=== PATIENT | female | born 1940 | race Caucasian/White ===

== ENCOUNTER 2019-12-15 10:03 | Outpatient (CLI) | payer MEDICARE, SELFPAY ==
--- NOTE | ~2019-12-15 | MM_ITS ---
EXAMINATION: MM screening [facility] BI w tee HISTORY: Screening mammogram TECHNIQUE: Craniocaudal and mediolateral oblique 3-D tomosynthesis images were obtained and synthetic 2-D images were generated. CAD analysis was submitted and interpreted. COMPARISON: Comparison to multiple prior studies sequentially, with oldest reviewed study dated 02/25. BREAST PARENCHYMAL COMPOSITION: There are scattered areas of fibroglandular density. FINDINGS: There is no evidence of suspicious mass, calcification, or architectural distortion to sugg est malignancy in either breast. There has been no suspicious interval change. IMPRESSION: 1. No mammographic evidence of malignancy. 2. Recommend routine screening mammography in one year. BI-RADS Category 1: Negative Reviewed, dictated and finalized at location A.
== END 2019-12-15 10:04 | disposition home or self-care (01) ==
LOC: ANHIMG 10:07
PROVIDERS: PCP Family Medicine; Visit Provider Family Medicine
DX: Z12.31 Encounter for screening mammogram for malignant neoplasm of breast (principal)
CPT/HCPCS: 77063; 77067

== ENCOUNTER 2020-12-16 10:36 | Outpatient (CLI) | payer MEDICARE, SELFPAY ==
--- NOTE | ~2020-12-16 | MM_ITS ---
EXAMINATION: MM screening [facility] BI w tee HISTORY: Screening TECHNIQUE: Craniocaudal and mediolateral oblique 3-D tomosynthesis images were obtained and synthetic 2-D images were generated. CAD analysis was submitted and interpreted. COMPARISON: Comparison to multiple prior studies sequentially, with oldest reviewed study dated 02/27. BREAST PARENCHYMAL COMPOSITION: There are scattered areas of fibroglandular density. FINDINGS: There is no evidence of suspicious mass, calcification, or architectural distortion to sugg est malignancy in either breast. There has been no suspicious interval change. IMPRESSION: 1. No mammographic evidence of malignancy. 2. Recommend routine screening mammography in one year. BI-RADS Category 1: Negative Reviewed, dictated and finalized at location A.
== END 2020-12-16 10:37 | disposition home or self-care (01) ==
LOC: ANHIMG 10:39
PROVIDERS: PCP Family Medicine; Visit Provider Family Medicine
DX: Z12.31 Encounter for screening mammogram for malignant neoplasm of breast (principal)
CPT/HCPCS: 77063; 77067

== ENCOUNTER 2021-12-27 09:07 | Outpatient (CLI) | payer MEDICARE, SELFPAY ==
--- NOTE | ~2021-12-27 | MM_ITS ---
EXAMINATION: MM screening [facility] BI w tee HISTORY: Screening TECHNIQUE: Craniocaudal and mediolateral oblique 3-D tomosynthesis images were obtained and synthetic 2-D images were generated. CAD analysis was submitted and interpreted. COMPARISON: Comparison to multiple prior studies sequentially, with oldest reviewed study dated 12/14. BREAST PARENCHYMAL COMPOSITION: The breasts are heterogenously dense, which may obscure small masses FINDINGS: There is no evidence of suspicious mass, calcification, or architectural distortion to sugg est malignancy in either breast. There has been no suspicious interval change. IMPRESSION: 1. No mammographic evidence of malignancy. 2. Recommend routine screening mammography in one year. BI-RADS Category 1: Negative Reviewed, dictated and finalized at location A.
== END 2021-12-27 09:08 | disposition home or self-care (01) ==
PROVIDERS: PCP Family Medicine; Visit Provider Family Medicine
DX: Z12.31 Encounter for screening mammogram for malignant neoplasm of breast (principal)
CPT/HCPCS: 77063; 77067

== ENCOUNTER 2022-03-13 17:19 | Outpatient (CLI) | payer MEDICARE, SELFPAY ==
--- NOTE | ~2022-03-13 | CT_ITS ---
EXAMINATION:CT diagnostic chest wo con DATE: 03/13/2022 17:53 INDICATION: Dyspnea. TECHNIQUE: Computed tomography (CT) of the chest was performed without intravenous contrast. Automate d exposure control and iterative reconstruction technique were employed. The dose-length product (DLP ) was 118.78 mGy-cm. COMPARISON: None. FINDINGS: The lungs demonstrate mild atelectasis. There is a 2.4 x 0.4 x 0.6 cm nodule in left upper lobe. No pleural effusion. The heart size is normal. There are coronary artery calcifications. No per icardial effusion. There are changes of cholecystectomy. There are no pathologically enlarged lymph n odes. There are chronic fractures involving the T11-L1 vertebral bodies. There is moderate thoracic s pondylosis. IMPRESSION: 1. Nodule in left lung upper lobe, most likely scarring given the morphology. Neoplasm cannot be excl uded. Noncontrast chest CT is recommended in 3 months. Reviewed, dictated and finalized at location A. IMPRESSION: 1. Nodule in left lung upper lobe, most likely scarring given the morphology. N eoplasm cannot be excluded. Noncontrast chest CT is recommended in 3 months.
== END 2022-03-13 17:20 | disposition home or self-care (01) ==
PROVIDERS: PCP Family Medicine; Visit Provider Family Medicine
DX: R06.00 Dyspnea, unspecified (principal); Z85.72 Personal history of non-Hodgkin lymphomas; Z92.3 Personal history of irradiation; R91.8 Other nonspecific abnormal finding of lung field
CPT/HCPCS: 71250

== ENCOUNTER 2022-03-31 10:08 | Outpatient (CLI) | payer MEDICARE, SELFPAY ==
--- NOTE | 2022-03-31 14:55 | WPDPFTINT ---
PFT Procedure Performed PFT Procedure Performed Plethysmography (Lung Vol) Diffusing Cap (DLCO) Flow Vol Loop Spirometry w/o Bronchodil PFT Interpretation This is a pulmonary function test with spirometry, plethysmography and diffusing capacity. The test was performed and results interpreted in accordance with the 2019 and 2005 ATS/ERS Task Force guidelines respectively using the Global Lung Function Initiative-2012 reference equations. Patient demonstrated good effort and cooperation. Reproducibility criteria were met. The quality of the spirometry maneuver was Grade A. Findings: Spirometry: There is decreased maximal expiratory airflow at low lung volumes with a concave expiratory flow tracing. The contour the inspiratory flow tracing is normal. The FVC is 1.78 L, 76% predicted. The FEV1 is 1.18 L, 66% predicted. The FEV1: FVC ratio 67%. Plethysmography: The total lung capacity is 5.07 L, 107% predicted. The functional residual capacity is 3.66 L, 135% predicted. The residual volume is 3.29 L, 144% predicted. Diffusion capacity: The diffusing capacity unadjusted for hemoglobin and carboxyhemoglobin is 12.2, 66% predicted. The diffusing capacity adjusted for alveolar volume is 4.61, 109% predicted. Impression: There is a moderate obstructive abnormality. The increase in residual volume is consistent with air trapping from an obstructive abnormality. The diffusing capacity is normal. There are no prior studies for comparison
== END 2022-03-31 10:09 | disposition home or self-care (01) ==
LOC: ANHPFT 10:09
PROVIDERS: PCP Family Medicine; Visit Provider Family Medicine
DX: R06.00 Dyspnea, unspecified (principal); Z92.3 Personal history of irradiation; Z85.72 Personal history of non-Hodgkin lymphomas; R94.2 Abnormal results of pulmonary function studies
CPT/HCPCS: 94375; 94726; 94729

== ENCOUNTER 2022-06-15 10:32 | Outpatient (CLI) | payer MEDICARE, SELFPAY ==
--- NOTE | ~2022-06-15 | CT_ITS ---
EXAMINATION: CT diagnostic chest wo con DATE: 06/15/2022 11:15 INDICATION: follow up lung nodule TECHNIQUE: Computed tomography (CT) of the chest was performed without intravenous contrast. Addition al 3D reconstructions utilizing coronal maximum intensity projection (MIP) were performed. Automated exposure control and iterative reconstruction technique were employed. The dose-length product was 53 .32 mGy-cm. COMPARISON: 03/13/2022 FINDINGS: No interval change in size or configuration of 2.4 long, 5 mm diameter nodule in the left upper lobe with configuration suggesting a bronchocele. Mild diffuse bronchial wall thickening. Small focus of a telectasis/scarring at the anterior lingula. No other pulmonary nodules, pulmonary edema, pneumonia o r pleural effusion. Heart size is normal. Atherosclerotic coronary artery calcifications. No pericard ial effusion. Thoracic aorta is normal in caliber. No significant interval change in multiple still n ormal-sized mediastinal and bilateral axillary lymph nodes. No pathologically enlarged thoracic lymph adenopathy. Cholecystectomy clips the gallbladder fossa. Stable appearance of chronic compression fra ctures at T11-L1. Moderate thoracic spondylosis. IMPRESSION: 1. No interval change in a 2.4 x 5 x 5 mm nodules in the left upper lobe with configuration suggestin g a bronchocele. Recommend 9 month follow-up low-dose noncontrast chest CT. Reviewed, dictated and finalized at location B. IMPRESSION: 1. No interval change in a 2.4 x 5 x 5 mm nodules in the left upper lobe with c onfiguration suggesting a bronchocele. Recommend 9 month follow-up low-dose non contrast chest CT.
== END 2022-06-15 10:33 | disposition home or self-care (01) ==
PROVIDERS: PCP Family Medicine; Visit Provider Family Medicine
DX: R91.8 Other nonspecific abnormal finding of lung field (principal)
CPT/HCPCS: 71250

== ENCOUNTER 2023-02-08 09:30 | Outpatient (CLI) | payer MEDICARE, SELFPAY ==
--- NOTE | ~2023-02-08 | MM_ITS ---
EXAMINATION: MM screening [facility] BI w tee HISTORY: Screening. History of lymphoma. TECHNIQUE: Craniocaudal and mediolateral oblique 3-D tomosynthesis images were obtained and synthetic 2-D images were generated. CAD analysis was submitted and interpreted. COMPARISON: Comparison to multiple prior studies sequentially, with oldest reviewed study dated 05/2018. BREAST PARENCHYMAL COMPOSITION: There are scattered areas of fibroglandular density. FINDINGS: There is an enlarged dense lymph node in the right axilla. No mammographic evidence for mal ignancy in the left breast. IMPRESSION: 1. Enlarged dense right axillary lymph node. Cannot exclude recurrent lymphoma or metastatic disease. 2. Recommend right axillary ultrasound.. BI-RADS CATEGORY 0 - INCOMPLETE STUDY, NEED ADDITIONAL IMAGING EVALUATION. Reviewed, dictated and finalized at location A.
== END 2023-02-08 09:31 | disposition home or self-care (01) ==
PROVIDERS: PCP Family Medicine; Visit Provider Family Medicine
DX: Z12.31 Encounter for screening mammogram for malignant neoplasm of breast (principal); R59.0 Localized enlarged lymph nodes
CPT/HCPCS: 77063; 77067

== ENCOUNTER 2023-02-08 13:30 | Outpatient (CLI) | payer MEDICARE, SELFPAY ==
--- NOTE | ~2023-02-08 | CT_ITS ---
EXAMINATION: CT abdomen pelvis wo con DATE: 02/08/2023 13:57 INDICATION: Adrenal adenoma. History of lymphoma. TECHNIQUE: Computed tomography (CT) of the abdomen and pelvis was performed without intravenous contr ast. Automated exposure control and iterative reconstruction technique were employed. Exam dose: 209 .10 mGy-cm total exam DLP. COMPARISON: 06/15/2022 CT chest FINDINGS: The lung bases are clear. Normal heart size. No pericardial or pleural effusion. Status post cholecystectomy. Hepatic surface nodularity is noted in particular posterolaterally. Recommend clinical correlation fo r possible cirrhosis. No hepatic or splenic space-occupying mass lesion is detected. No splenomegaly. No pancreatic mass lesion, calcification or pancreatic ductal dilatation is evident. No bile duct di latation. No adrenal mass lesion is detected on either side. No renal mass lesion is evident on this limited noncontrast examination. No urinary tract calculus or hydroureteronephrosis. There is prominent atherosclerotic calcification of the abdominal aorta and prominent calcified plaqu es at the origins of the celiac and particularly superior mesenteric arteries in addition to calcifie d plaques at the origins of both renal arteries. No abdominal aortic aneurysm. No intraperitoneal or retroperitoneal or pelvic mass lesion or adenopathy or ascites. The urinary bladder is unremarkable. Status post hysterectomy. There is nonspecific increased density of the mesenteric fat which may be due to early or prior treat ed lymphoma, mesenteric panniculitis, mesenteric inflammation, pancreatitis, mesenteric edema. No evidence of appendicitis. Diverticulosis of the colon; no CT evidence of diverticulitis. No bowel obstruction, bowel wall thickening, pneumatosis or intraperitoneal free air. There are chronic compression fracture deformities of T11, T12 and L1, present on 06/15/2022 CT thora x examination. Severe degenerative disc disease and mild retrolisthesis at L2-3. Moderately severe degenerative disc disease at L4-5 and L5-S1. IMPRESSION: Increased mesenteric density; given the history of lymphoma, this may secondary to prior treated lymphoma; early lymphoma can present with similar finding. No enlarged mesenteric lymph node s are noted. Differential diagnosis includes pancreatitis, mesenteric panniculitis, mesenteric edema or inflammation Hepatic surface nodularity is noted posterolaterally; recommend clinical correlation for possible cir rhosis Status post cholecystectomy Status post hysterectomy Reviewed, dictated and finalized at Location A. Reviewed, dictated and finalized at location L. IMPRESSION: Increased mesenteric density; given the history of lymphoma, this may secondary to prior treated lymphoma; early lymphoma can present with simila r finding. No enlarged mesenteric lymph nodes are noted. Differential diagnosis includes pancreatitis, mesenteric panniculitis, mesenteric edema or inflammati on Hepatic surface nodularity is noted posterolaterally; recommend clinical correl ation for possible cirrhosis Status post cholecystectomy Status post hysterectomy
== END 2023-02-08 13:31 | disposition home or self-care (01) ==
PROVIDERS: PCP Family Medicine; Visit Provider Internal Medicine Endocrinology, Diabetes & Metabolism
DX: D35.00 Benign neoplasm of unspecified adrenal gland (principal); R16.0 Hepatomegaly, not elsewhere classified; Z85.72 Personal history of non-Hodgkin lymphomas; Z90.49 Acquired absence of other specified parts of digestive tract; Z90.710 Acquired absence of both cervix and uterus
CPT/HCPCS: 74176; 77063; 77067

== ENCOUNTER 2023-02-15 10:45 | Outpatient (CLI) | payer MEDICARE, SELFPAY ==
--- NOTE | ~2023-02-15 | US_ITS ---
US axilla RT DATE: 02/15/2023 11:13 INDICATION: Enlarging dense right axillary lymph node since 12/27/2021 TECHNIQUE: Real-time and color flow imaging of right axillary soft tissues COMPARISON: 02/08/2023, 12/27/2021 bilateral screening mammogram examinations FINDINGS: Corresponding to the enlarged dense right axillary lymph node on 02/08/2023 is an approximate ly 1.3 x 2.5 cm lymph node with some thickening and hypoechogenicity of the cortex, particularly in t he mid lateral aspect of the lymph node. Given the substantial increase in size and density since bree or mammogram of 12/27/2021, ultrasound-guided biopsy of the lymph node is recommended. IMPRESSION: Suspicious interval enlargement increased density of a prominent right axillary lymph nod e since 12/27/2021, raising concern for possible lymphoma or metastatic disease; ultrasound-guided bio psy is recommended Reviewed, dictated and finalized at Location A. Reviewed, dictated and finalized at location A. IMPRESSION: Suspicious interval enlargement increased density of a prominent ri ght axillary lymph node since 12/27/2021, raising concern for possible lymphoma or metastatic disease; ultrasound-guided biopsy is recommended
== END 2023-02-15 10:46 | disposition home or self-care (01) ==
PROVIDERS: PCP Family Medicine; Visit Provider Family Medicine
DX: R59.0 Localized enlarged lymph nodes (principal)
CPT/HCPCS: 76882

== ENCOUNTER 2023-03-09 10:28 | Outpatient (CLI) | payer MEDICARE, SELFPAY ==
--- NOTE | ~2023-03-09 | CT_ITS ---
CT Scan of the Chest without Contrast: Clinical Indication: Pulmonary nodule Technique: Contiguous sections were acquired throughout the chest without intravenous contrast. Dose reduction technique was used on this scan by utilizing automated exposure control and iterative recon struction technique. The dose-length product (DLP) was 52.33 mGy-cm. COMPARISON: 06/15/2022 Findings: Right axillary lymphadenopathy and right paratracheal lymph node increase in size from prior exam. Ri ght paratracheal stripe noted now measures 1.9 x 1.9 cm.. No aortic aneurysm. No left axillary lympha denopathy evident. There is no evidence of pleural or pericardial effusion. Stable elongated nodule in the left upper lobe (axial image 31). Images through the upper abdomen reveal no abnormalities. Stable mild compression deformity of T11, T 12, and L1. Impression: Stable elongated nodular opacity in the left upper lobe. Enlarging right axillary and right paratracheal stripe lymphadenopathy. Patient has reported history of lymphoma. Findings could reflect interval progression or recurrence of lymphoma. Stable compression fractures, as above. Reviewed, dictated and finalized at location . Impression: Stable elongated nodular opacity in the left upper lobe. Enlarging right axillary and right paratracheal stripe lymphadenopathy. Patient has reported history of lymphoma. Findings could reflect interval progression or recurrence of lymphoma. Stable compression fractures, as above.
--- NOTE | ~2023-03-09 | US_ITS ---
EXAMINATION: US_BXSTAXLIMG_US DATE: 03/09/2023 11:48 INDICATION: Right axillary lymphadenopathy. TECHNIQUE: The procedure including the risks, benefits, and alternatives was discussed with the patie nt. Risks discussed included bleeding and infection. The patient understood the risks and agreed to p roceed. The skin overlying the right axilla was prepped and draped in usual sterile fashion. Anesthe tic was administered with 1% lidocaine subcutaneously. An 18 gauge core biopsy needle was then used to obtain 6 core biopsy specimens under continuous sonographic guidance. The entry site was cleaned a nd dressed. There were no immediate complications. FINDINGS: Ultrasound images demonstrate the needle in a 2.3 x 2.0 x 1.1 cm right axillary lymph node. IMPRESSION: 1. Ultrasound-guided core needle biopsy of a prominent right axillary lymph node. Reviewed, dictated and finalized at location A. IMPRESSION: 1. Ultrasound-guided core needle biopsy of a prominent right axillary lymph nod e.
== END 2023-03-09 10:29 | disposition home or self-care (01) ==
PROVIDERS: PCP Family Medicine; Visit Provider Family Medicine
DX: R91.1 Solitary pulmonary nodule (principal); R59.9 Enlarged lymph nodes, unspecified; Z85.72 Personal history of non-Hodgkin lymphomas
CPT/HCPCS: 20999; 71250; 76942; 88184; 88305; 88341; 88342

== ENCOUNTER 2023-12-24 04:38 | Emergency (ER) | payer MEDICARE, SELFPAY ==
--- NOTE | ~2023-12-24 | XR_ITS ---
EXAMINATION: XR chest 2V DATE: 12/24/2023 05:08 INDICATION: Cough. TECHNIQUE: Frontal and lateral views of the chest were obtained. COMPARISON: Chest 2 views 10/24/2018 FINDINGS: There is no pneumonia, pleural effusion, or pneumothorax. The heart size is normal. There a re surgical clips in the abdomen. There are multiple chronic compression fractures in the spine. IMPRESSION: 1. No acute cardiopulmonary disease. Reviewed, dictated and finalized at location E.
[2023-12-24 04:38] VITALS: BP 196/73; PULSE 81; RESP 20; TEMP 36.6; O2SAT 93
[2023-12-24 04:49] VITALS: O2SAT 96
[2023-12-24] MEDS: BENZONATATE 100 MG CAPSULE 200 MG PO (04:58)
--- NOTE | 2023-12-24 05:02 | ED.GENADULT ---
HPI - General Adult General Chief complaint: Upper Respiratory Infection Stated complaint: cough, congestion Time Seen by Provider: 12/24/23 04:46 History of Present Illness HPI narrative: Patient 83-year-old female who presents emergency department with chief complaint of cough and congestion. Patient reports that on the she started having a cough patient states it has been productive of yellowish sputum patient states that she is concerned that she may have pneumonia patient denies fevers reports no chest pain Related Data Home Medications Medication Instructions Recorded Confirmed calcium carbonate (Calcium 600) 600 mg PO DAILY 03/27/23 03/27/23 levothyroxine 100 mcg tablet 100 mcg PO DAILY 10/26/23 Allergies Allergy/AdvReac Type Severity Reaction Status Date / Time prednisone Allergy Severe Nausea and Verified 12/24/23 04:49 Vomiting cholecalciferol (vitamin D3) Allergy Unknown RASH Verified 12/24/23 04:49 estrogens, conjugated Allergy Unknown HORMONE Verified 12/24/23 04:49 REPLACEMENT THERAPY= SEVERE RASH AND LETHARGIC famotidine AdvReac Mild Diarrhea Verified 12/24/23 04:49 spironalectone Allergy Severe Rash Uncoded 03/27/23 11:14 Contrast Media Allergy Unknown HEART Uncoded 09/12/22 14:13 RACING eplerinone AdvReac Severe Rash Uncoded 03/27/23 11:14 lisinopril AdvReac Severe Rash Uncoded 03/27/23 11:14 amalodipine AdvReac Mild Rash Uncoded 03/27/23 11:14 Review of Systems Review of Systems: A 10 system review of systems was completed on the patient and is negative except for what is stated in the HPI. Nursing and ancillary documentation was reviewed. 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 GERD (gastroesophageal reflux disease) HTN (hypertension) Hx of non-Hodgkin's lymphoma Hypothyroid Left knee pain Lung nodule Lymphoma Mixed hyperlipidemia Postmenopausal Surgical History Surgical History History of total right knee replacement (TKR) Family History Family History Father Hypertension Family history of cardiovascular disease Sibling Hypertension Other Arthritis Social History Social History Smoking status: Never smoker Second hand tobacco smoke exposure: No Alcohol intake: current Drinks per week: 7 Substance use: never Substance use type: does not use Lack of Transportation: No Lack of Food: Never True Current Housing: I Have Housing Concerned About Future Housing: No Difficulty Paying Gas/Electric Bills: No Difficulty Paying for Meds: No Currently Unemployed: No Education: High School Diploma/GED Difficulty w/ Childcare or Family Care: No Living arrangements: with family Occupation/Education: retired Gender identity (if verbalized by the patient): Female Sexual Orientation (if Verbalized by the Patient): Straight or Heterosexual Spiritual care concerns: No Agree to blood products: Yes Exam Narrative: GENERAL: Well-appearing, well-nourished, and in no acute distress. HEAD: Normocephalic, atraumatic. EYES: PERRLA and EOMI. ENT: Nares clear, no rhinorrhea or epistaxis. Mucous membranes moist. NECK: Supple. CHEST: Clear to auscultation. No respiratory distress. HEART: Regular rate and rhythm. No murmur heard. Normal peripheral pulses. ABDOMEN: Soft, nontender, nondistended, normal active bowel sounds. EXTREMITIES: Normal range of motion. No edema. SKIN: Warm, dry, no rash. NEURO: No focal deficits. Alert and oriented x3. PSYCH: Normal mood and affect. Course Vital Signs Vital signs: Vital Signs Temperature 36.6 C 12/24/23 04:38 Pulse Rate 81 12/24/23 04:38 Respiratory Rate 20
[2023-12-24 05:21] LABS: Strep Group A RT-PCR NOT DETECTED (Negative)
[2023-12-24 05:34] LABS: Influenza A QL RT-PCR Negative (Negative); Influenza B QL RT-PCR Negative (Negative); RSV RNA, RT-PCR Positive (Negative); SARS-CoV-2 RNA PCR Negative (Negative)
[2023-12-24 06:17] VITALS: BP 150/95; PULSE 68; RESP 18; O2SAT 95
== END 2023-12-24 06:05 | disposition home or self-care (01) ==
PROVIDERS: Emergency Provider Emergency Medicine; PCP Family Medicine
DX: J20.5 Acute bronchitis due to respiratory syncytial virus (principal); Z20.822 Contact with and (suspected) exposure to COVID-19; I10 Essential (primary) hypertension; E03.9 Hypothyroidism, unspecified; E78.2 Mixed hyperlipidemia; K21.9 Gastro-esophageal reflux disease without esophagitis; Z96.651 Presence of right artificial knee joint; Z85.72 Personal history of non-Hodgkin lymphomas
CPT/HCPCS: 71046; 87637; 87651; 99283; A9270

== ENCOUNTER 2024-02-22 10:35 | Outpatient (CLI) | payer MEDICARE, SELFPAY ==
--- NOTE | ~2024-02-22 | MM_ITS ---
EXAMINATION: MM screening [facility] BI w tee HISTORY: Screening TECHNIQUE: Craniocaudal and mediolateral oblique 3-D tomosynthesis images were obtained and synthetic 2-D images were generated. CAD analysis was submitted and interpreted. COMPARISON: Comparison to multiple prior studies sequentially, with oldest reviewed study dated 12/12. BREAST PARENCHYMAL COMPOSITION: Not dense: There are scattered areas of fibroglandular density. FINDINGS: Decreased size of axillary lymph nodes compared with 02/08/2023. There is no evidence of leiva spicious mass, calcification, or architectural distortion to suggest malignancy in either breast. The re has been no suspicious interval change. IMPRESSION: 1. No mammographic evidence of malignancy. 2. Recommend routine screening mammography in one year. BI-RADS Category 1: Negative Reviewed, dictated and finalized at location B.
== END 2024-02-22 10:36 | disposition home or self-care (01) ==
LOC: ANHIMG 10:36
PROVIDERS: PCP Family Medicine; Visit Provider Family Medicine
DX: Z12.31 Encounter for screening mammogram for malignant neoplasm of breast (principal)
CPT/HCPCS: 77063; 77067